=== PATIENT | female | born 1970 | race African-American/Black ===

== ENCOUNTER 2020-04-11 10:51 | Emergency (ER) | payer OTHER ==
[~2020-04-11] VITALS: Ht 177.8 cm; Wt 103.0 kg
[2020-04-11] MEDS ORDERED: DIPHENHYDRAMINE 25MG CAPSULE PO ONE (11:30)
[2020-04-11 12:07] VITALS: BP 132/88
== END 2020-04-11 12:07 | disposition home or self-care (01) ==
LOC: ER 10:51
DX: T78.40XA Allergy, unspecified, initial encounter (principal); E05.00 Thyrotoxicosis with diffuse goiter without thyrotoxic crisis or storm; D64.9 Anemia, unspecified; Z98.51 Tubal ligation status; X58.XXXA Exposure to other specified factors, initial encounter
CPT/HCPCS: 99282; Q0163

== ENCOUNTER 2023-02-04 14:06 | Emergency (ER) | payer OTHER ==
[~2023-02-04] VITALS: Ht 177.8 cm; Wt 105.0 kg
[2023-02-04] MEDS ORDERED: SODIUM CHLORIDE 0.9% 1,000 ML IV ONE (14:15)
[2023-02-04] MEDS ORDERED: VISCOUS LIDOCAINE 2% 15 ML UDC PO STA (14:35)
[2023-02-04] MEDS ORDERED: KETOROLAC 60MG/2ML VIAL IM STA (14:35)
[2023-02-04] MEDS ORDERED: FAMOTIDINE 20MG/2ML VIAL IV STA (14:35)
[2023-02-04] MEDS ORDERED: MAGNESIUM/ALUMINUM HYDROXIDE/SIMETHICONE 30ML UDC PO STA (14:35)
[2023-02-04] MEDS ORDERED: ONDANSETRON HCL 4MG/2ML INJ IV NR (15:00)
[2023-02-04 16:22] LABS: BASOPHILS % 0.6 % (0.0-2.0); HEMATOCRIT. 25.9 % (36.0-48.0); HEMOGLOBIN. 7.9 g/dL (12.0-16.0); LYMPHOCYTES % 26.7 % (20.0-50.0); MEAN CORPUSCULAR HEMOGLOBIN 20.1 pg (28.0-32.0); MEAN CORPUSCULAR VOLUME 65.5 fL (81.0-99.0); MEAN PLATELET VOLUME 9.1 fl (7.4-10.4); MONOCYTES % 2.6 % (2.0-8.0); NEUTROPHILS % 70.1 % (40.0-76.0); PLATELET 493 x1000/uL (130-400); RED BLOOD CELL COUNT 3.95 mill/uL (4.2-5.4); RED CELL DISTRIBUTION WIDTH 24.7 % (11.6-14.6)
[2023-02-04 16:35] LABS: CHLORIDE 107 mEq/L (98-107)
[2023-02-04 17:03] LABS: PLATELET ESTIMATE NORMAL
[2023-02-04] MEDS ORDERED: KETOROLAC 60MG/2ML VIAL IM NR (17:15)
[2023-02-04] MEDS ORDERED: FAMOTIDINE 20MG/2ML VIAL IV NR (17:15)
[2023-02-04] MEDS ORDERED: MAGNESIUM/ALUMINUM HYDROXIDE/SIMETHICONE 30ML UDC PO NR (17:15)
[2023-02-04] MEDS ORDERED: VISCOUS LIDOCAINE 2% 15 ML UDC PO NR (17:15)
[2023-02-04] MEDS ORDERED: POTASSIUM CHLORIDE 20MEQ TABLET SR PO ONE (17:45)
[2023-02-04] MEDS ORDERED: POTASSIUM CHLORIDE 20MEQ TABLET SR PO NR (19:30)
[2023-02-04] MEDS ORDERED: KCL 20MEQ/100ML PREMIX 100 ML IV ONE (20:45)
[2023-02-04] MEDS ORDERED: METOCLOPRAMIDE HCL 10MG/2ML VIAL IV ONE (20:45)
[2023-02-04 22:49] VITALS: BP 144/74
== END 2023-02-04 23:58 | disposition short-term general hospital (02) ==
LOC: ER 14:06
DX: K52.9 Noninfective gastroenteritis and colitis, unspecified (principal); R11.2 Nausea with vomiting, unspecified; E87.6 Hypokalemia; D64.9 Anemia, unspecified
CPT/HCPCS: 36415; 74176; 76705; 80053; 83690; 85025; 93005; 96361; 96365; 96372; 96375; 99285; J1885; J2405; J2765; J3480; J3490; Z7610